=== PATIENT | male | born 1960 | race Caucasian/White ===

== ENCOUNTER 2021-09-07 08:37 | Day surgery (SDC) | payer BC ==
[2021-09-03 14:13] VITALS: BMI 32.6
[~2021-09-07 08:37] MED LIST: LACTATED RINGERS 1,000 ML IV SCH; LIDOCAINE 1% (10MG/ML) FOR IV START INTRADERMA PRN
[2021-09-07 08:58] VITALS: RESP 16; TEMP 97.2
[2021-09-07] MEDS ORDERED: PROPOFOL 10 MG/ML 20 ML VIAL IV ONE (09:40)
--- NOTE | 2021-09-07 09:45 | P.GSHP ---
History of Present Illness H&P Date: 09/07/21 Chief Complaint: Colon cancer screening 60-year-old male here today for colonoscopy. Last colonoscopy 10 years ago was reportedly normal. No bowel complaints. No family history of colon cancer. Past Medical History Past Medical History: Hyperlipidemia History of Any Multi-Drug Resistant Organisms: None Reported Additional Past Surgical History / Comment(s): ORIF lt lower leg Past Anesthesia/Blood Transfusion Reactions: No Reported Reaction Smoking Status: Never smoker - Past Family History Mother Family Medical History: No Reported History Medications and Allergies Home Medications Medication Instructions Recorded Confirmed Type Cholesterol Med 1 tab PO DAILY 09/03/21 09/03/21 History Triglyceride Med 1 tab PO DAILY 09/03/21 09/03/21 History Allergies Allergy/AdvReac Type Severity Reaction Status Date / Time No Known Allergies Allergy Verified 09/03/21 13:49 Surgical - Exam Vital Signs Temp Pulse Resp BP Pulse Ox 97.2 F L 67 16 127/75 97 09/07/21 08:57 09/07/21 08:57 09/07/21 08:57 09/07/21 08:57 09/07/21 08:57 Physical exam: General: Well-developed, well-nourished HEENT: Normocephalic, sclerae nonicteric Abdomen: Nontender, nondistended Extremities: No edema Neuro: Alert and oriented Assessment and Plan (1) Colon cancer screening Narrative/Plan: Will proceed with colonoscopy at this time Current Visit: Yes Status: Acute Code(s): Z12.11 - ENCOUNTER FOR SCREENING FOR MALIGNANT NEOPLASM OF COLON SNOMED Code(s): 356259552
--- NOTE | 2021-09-07 09:59 | P.PCN ---
Date of Procedure: 09/07/21 Procedure(s) Performed: PREOPERATIVE DIAGNOSIS: Colon cancer screening POSTOPERATIVE DIAGNOSIS: Diverticulosis, transverse colon polyp PROCEDURE: Colonoscopy with biopsy ANESTHESIA: MAC SURGEON: Raymon Goel M.D. SPECIMENS: Transverse colon polyp ENDOSCOPIC PROCEDURE: The patient was placed on the endoscopy table in the left decubitus position. The Olympus colonoscope was inserted into the anus and passed under direct visualization to the base of the cecum. The appendiceal orifice was visualized. From that point the scope was slowly withdrawn inspecting all surfaces carefully. There were no neoplastic inflammatory or polypoid lesions throughout the cecum and ascending colon. In the transverse colon a small polyp was seen and removed using the cold biopsy forceps. The remainder of the transverse descending sigmoid and rectum appeared normal. There is mild left-sided diverticulosis. Digital rectal examination was normal. The patient was taken to the recovery room in stable condition per anesthesia guidelines. RECOMMENDATIONS: Await biopsy results. Resume diet. Follow colonoscopy in 5-7 years anticipated.
[2021-09-07 10:15] VITALS: BP 122/78; PULSE 63
== END 2021-09-07 10:35 | disposition home or self-care (01) ==
LOC: ORWHC2ENDO 08:37
PROVIDERS: ATTEND Surgery
DX: Z12.11 Encounter for screening for malignant neoplasm of colon (principal); D12.3 Benign neoplasm of transverse colon; E78.5 Hyperlipidemia, unspecified
CPT/HCPCS: 45380; 88305; J2704

== ENCOUNTER → 2021-09-08 | Outpatient (CLI) | payer BC ==
--- NOTE | 2021-09-08 22:13 | CT ---
EXAMINATION TYPE: CT abdomen pelvis wo con DATE OF EXAM: 09/08/2021 COMPARISON: None available HISTORY: Abnormal xray in office. CT DLP: 710.8 mGycm. Automated Exposure Control for Dose Reduction was Utilized. TECHNIQUE: Multiple contiguous axial CT images of the abdomen, and pelvis were obtained from the lung apices through the pubic symphysis without the administration of intravenous contrast. 2-D sagittal and coronal reformatted images were obtained. FINDINGS: Liver, spleen, pancreas, and bilateral adrenal glands have an unremarkable unenhanced appearance. Gallbladder is present. No definite intrahepatic or extrahepatic biliary ductal dilatation. Kidneys are symmetric in size without hydronephrosis. No renal or ureteral calculi. There is a partia lly calcified exophytic lesion of the left kidney measuring 14 mm. Urinary bladder appears unremarkab le. Large amount of the prostate gland. No free fluid. Visualized bowel is of normal caliber without evidence of obstruction. Nonspecific haziness of the ce ntral mesentery with a few mildly prominent mesenteric lymph nodes. Mild burden of distal colonic div erticulosis without adjacent inflammatory changes. Appendix appears unremarkable. No free air. Abdominal aorta is of normal caliber. No retroperitoneal lymphadenopathy. Subcutaneous soft tissues a ppear unremarkable. Mild multilevel degenerative changes of the visualized thoracolumbar spine. IMPRESSION: 1. Nonspecific haziness of the central mesentery with a few mildly prominent mesenteric lymph nodes w hich may represent panniculitis. 2. Partially calcified exophytic lesion of the left kidney measuring 14 mm, which may represents a pa rtially calcified renal cyst or primary renal neoplasm. Recommend comparison with prior imaging if av ailable; otherwise, recommend follow-up imaging in 3 months to ensure stability.
== END | disposition home or self-care (01) ==
LOC: RADCTMAIN 15:51
PROVIDERS: ATTEND Family Medicine
DX: N28.89 Other specified disorders of kidney and ureter (principal)
CPT/HCPCS: 74176

== ENCOUNTER → 2021-11-30 | Outpatient (CLI) | payer BC ==
--- NOTE | 2021-11-30 09:40 | CT ---
EXAMINATION TYPE: CT abdomen pelvis wo/w con CT DLP: 1828.0 mGycm, Automated exposure control for dose reduction was used. 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 Coronal and sagittal reformats were performed. FINDINGS: LOWER CHEST: Unremarkable ABDOMEN LIVER: Unremarkable GALLBLADDER AND BILE DUCTS: Unremarkable. PANCREAS: Unremarkable. SPLEEN: Unremarkable. ADRENAL GLANDS: Unremarkable. KIDNEYS AND URETERS: No evidence of hydronephrosis or renal calculus. Stable partially calcified exop hytic lesion of the left lower pole measuring 1.7 cm. No definitive contrast enhancement however eval uation is limited due to calcification and size. PELVIS BLADDER: Unremarkable REPRODUCTIVE: Coarse calcifications of the prostate gland are identified. ABDOMEN & PELVIS STOMACH AND BOWEL: Stomach and duodenum are unremarkable. Scattered diverticula are noted throughout the colon. No evidence of bowel obstruction. PERITONEUM: No evidence of pneumoperitoneum or free fluid. VASCULATURE: No evidence of aortic aneurysm. MUSCULOSKELETAL: No acute osseous abnormalities. No suspicious osseous lesions. LYMPH NODES: No gross evidence for lymphadenopathy. SOFT TISSUE/ABDOMINAL WALL: Small fat filled umbilical hernia. IMPRESSION: 1. Stable partially calcified exophytic lesion of the left renal lower pole. Etiologies again may re present a partially calcified renal cyst versus primary renal neoplasm. Consider 6 month follow up to assess for stability. 2. No concerning lymphadenopathy.
== END | disposition home or self-care (01) ==
LOC: RADCTMAIN 07:12
PROVIDERS: ATTEND Family Medicine
DX: D49.519 Neoplasm of unspecified behavior of unspecified kidney (principal)
CPT/HCPCS: 82565; 84520; 74178; 36415; Q9967 ×2

== ENCOUNTER → 2021-12-02 | Outpatient (CLI) | payer BC ==
[2021-12-02 23:33] LABS: African American GFR (CKD) 72.3 (60.0-200.0); Anion Gap 13.4 mmol/L (10.00-18.00); BUN/Creat Ratio 13.87 Ratio (12.00-20.00); Blood Urea Nitrogen 17.2 mg/dL (9.0-27.0); Calcium 9.4 mg/dL (8.7-10.3); Carbon Dioxide 23.5 mmol/L (20.0-27.5); Non-African American GFR(CKD) 62.4 (60.0-200.0); Potassium 4.2 mmol/L (3.5-5.5)
[2021-12-02 23:47] LABS: Basophils # (A) 0.05 X 10*3/uL (0.00-0.10); Basophils % (A) 0.6 %; Eosinophils # (A) 0.23 X 10*3/uL (0.04-0.35); Eosinophils % (A) 2.9 %; HCT 42.6 % (39.6-50.0); HGB 13.6 g/dL (13.0-17.0); Immature Grans, Automated 0.3 %; Lymphocytes # (A) 2.69 X 10*3/uL (0.90-5.00); Lymphocytes % (A) 33.8 %; MCH 29.4 pg (27.0-32.0); MCHC 31.9 g/dL (32.0-37.0); MCV 92.2 fL (80.0-97.0); Mean Platelet Volume 9.6 fL (9.5-12.2); Monocytes # (A) 0.47 X 10*3/uL (0.20-1.00); Monocytes % (A) 5.9 %; NRBC Per 100 WBC 0 /100 WBCS (0.0-0.0); Neutrophils % (A) 56.5 %; Platelet Count 320 X 10*3/uL (140-440); RBC 4.62 X 10*6/uL (4.40-5.60); RDW 12.5 % (11.5-14.5); WBC 7.96 X 10*3/uL (4.50-10.00)
[2021-12-03 09:24] LABS: INR 0.9 (<1.2); Partial Thromboplastin Time 22.3 sec (22.0-30.0)
== END | disposition home or self-care (01) ==
LOC: LABPAT 16:26
PROVIDERS: ATTEND Orthopaedic Surgery
DX: Z01.812 Encounter for preprocedural laboratory examination (principal); M16.11 Unilateral primary osteoarthritis, right hip
CPT/HCPCS: 80048; 85025; 85610; 85730; 87070; 93005

== ENCOUNTER → 2021-12-06 | Day surgery (SDC) | payer BC ==
--- NOTE | 2021-12-05 11:55 | HP ---
HISTORY AND PHYSICAL REASON FOR ADMISSION: Surgery scheduled for HISTORY OF PRESENT ILLNESS: Julio Beasley is a 61-year-old gentleman seen with progressive right hip pain. We discussed options for treatment. He elected to proceed with direct anterior right total hip arthroplasty. Consent regarding procedure was obtained. PAST MEDICAL HISTORY: Osteoarthritis. PAST SURGICAL HISTORY: ORIF left tibial plateau fracture. MEDICATIONS: Pravastatin. ALLERGIES: None. SOCIAL HISTORY: Denies tobacco use. PHYSICAL EXAMINATION: Evaluation of the right hip: He has very limited range of motion, severe pain. Positive hip impingement sign. Straight-leg raise is negative. Diffuse tenderness about the hip girdle. Distal neurovascular exam is intact. RADIOGRAPHS: Radiographs of the right hip reveal severe osteoarthritic changes. IMPRESSION: 1. Right hip osteoarthritis. 2. Hyperlipidemia. PLAN: Direct anterior right total hip arthroplasty. Surgery 12/06/2021. MMODL / IJN: [id number] /
[~2021-12-06] MED LIST changes: +ACETAMINOPHEN TAB 500 MG TAB PO PRN; +DEXAMETHASONE SOD PHOSPHATE 4 MG/ML 1 ML VIAL IV ONE; +GLYCOPYRROLATE 0.2 MG/ML 2 ML VIAL ONE; +HYDROcodone/APAP 5-325MG 1 EACH TAB PO PRN; +HYDROcodone/APAP 7.5-325MG 1 EACH TAB PO ONE; +HYDROcodone/APAP 7.5-325MG 1 EACH TAB PO PRN; +HYDROmorphone (PF) 1 MG/ML ONE; +HYDROmorphone 0.5 MG/0.5 ML SYRINGE IVP ONE; +HYDROmorphone 0.5 MG/0.5 ML SYRINGE IVP PRN; +HYDROmorphone 1 MG/ML 1 ML SYRINGE IVP PRN; +KETOROLAC 15 MG/ML 1 ML VIAL IVP ONE; +KETOROLAC 15 MG/ML 1 ML VIAL ONE; +LACTATED RINGERS 1,000 ML IV ONE; -LIDOCAINE 1% (10MG/ML) FOR IV START INTRADERMA PRN; +LIDOCAINE 2% INJ 20 MG/ML (2 ML VIAL) ONE; +MELOXICAM 7.5 MG TAB PO PRN; +MIDAZOLAM 2 MG/2 ML VIAL IVP ONE; +MIDAZOLAM 2 MG/2 ML VIAL ONE; +NALOXONE 0.4 MG/ML 1 ML VIAL IV PRN; +NEOSTIGMINE 1 MG/ML 10 ML VIAL ONE; +ONDANSETRON 4 MG/2 ML VIAL IVP ONE; +ONDANSETRON 4 MG/2 ML VIAL IVP PRN; +PROPOFOL 10 MG/ML 20 ML VIAL IV ONE; +ROCURONIUM 10 MG/ML (5 ML VIAL) IV ONE; +ROPIVACAINE 5 MG/ML 30 ML VIAL ONE; +SUCCINYLCHOLINE CHLORIDE 100 MG/5 ML SYR IV ONE; +TRANEXAMIC ACID IN NACL,ISO-OS 1,000 MG in SALINE 1 100ML.BAG IVPB PRN; +TRANEXAMIC ACID IN NACL,ISO-OS 1,000 MG/100 ML BAG ONE; +ceFAZolin 1,000 MG in SODIUM CHLORIDE 0.9% 1,000 ML IRRIGATION ONE; +fentaNYL (PF) 50 MCG/ML 2 ML AMP ONE
--- NOTE | 2021-12-06 08:52 | P.ANPRN ---
Procedure Note - Anesthesia - Nerve Block Performed Right Erector Spinae Single Time Out Performed: Yes (1010) Date of Procedure: 12/06/21 Procedure Start Time: :10 Procedure Stop Time: :08 Location of Patient: PreOp Indication: Acute Post-Operative Pain, Dx/Pain Location (Right hip pain) Specifically requested for management of pain by DrNeena: Ryan Tran Sedation Type: Sedate with meaningful contact maintained Preparation: Sterile Prep Position: Prone Catheter: None Needle Types: Pajunk Needle Gauge: 21 (100 mm) Ultrasound used to visualize needle placement: Yes Ultrasound used to observe medication spread: Yes Injectate: 0.5% Ropivacaine (see comment for volume) (30 cc) Blood Aspirated: No Pain Paresthesia on Injection Noted: No Resistance on Injection: Normal
--- NOTE | 2021-12-06 09:10 | FL ---
Fluoroscopy HISTORY: Right hip replacement 11 seconds fluoroscopy time supplied to the referring clinician. 3 intraoperative C-arm images docum ent the procedure. See dictated report from orthopedic surgery..
--- NOTE | 2021-12-06 09:16 | P.OP ---
Date of Procedure: 12/06/21 Preoperative Diagnosis: Right hip osteoarthritis Postoperative Diagnosis: Right hip osteoarthritis Procedure(s) Performed: Direct anterior right total hip arthroplasty Implants: 1. Depuy Corail 135 standard collar KA size 12 press-fit femoral stem 2. Depuy pinnacle 58 mm press-fit acetabular shell 3. Depuy pinnacle neutral polyethylene acetabular liner 38 mm ID 58 mm OD 4. Biolox delta ceramic femoral head +1.5 36 mm Anesthesia: GETA, regional (Spina erectae block) Surgeon: Ryan Tran Asset Protection Detective #1: Chucho Morrow Estimated Blood Loss (ml): 95 Pathology: other (Femoral head) Condition: stable Disposition: PACU Indications for Procedure: 61-year-old gentleman seen with symptomatic right hip osteoarthritis. After treatment options were discussed, he elected to proceed with direct anterior right total hip arthroplasty. Operative Findings: See description of procedure Description of Procedure: The patient was taken to the operative suite after having a spinal erectae block performed by the department of anesthesia for postoperative pain management. Patient underwent a general anesthetic by the department of anesthesia. Patient was then transferred to the [place] table. Patient was given preoperative IV antibiotics and TXA. Both lower extremities were placed in standard leg spars. The hip was then prepped and draped in the normal sterile orthopedic fashion. A standard anterior incision was made beginning 3 cm lateral and 1 cm distal to the ASIS extending 10 cm. Dissection was then carried down through the subcutaneous soft tissues down to the fascia overlying the tensor fascia daron. An incision was now made through the fascia. Careful dissection was taken down exposing the tensor fascia daron muscle. A Cobra retractor was now placed along the medial femoral neck and a second one along the lateral femoral neck. The venous circumflex vessels were now identified, cauterized and clipped. We identified the anterior hip capsule. An incision was made through the hip capsule along the lateral border. I performed a partial anterior capsulectomy. Retractors were now placed around the femoral neck itself. A femoral neck cut was now made with a sagittal saw. It was completed with an osteotome at the lateral neck area. The femoral head was now removed without difficulty. The extremity was now rotated to 60 of external rotation. It was locked in position. Residual labrum was now debrided out. Serial reaming was performed of the acetabulum while Jonathan WIN assisted holding an anterior retractor for exposure. Once we reached the appropriate size and a trial was position and fit nicely. The appropriate size was now chosen opened and made available. It was introduced into the acetabulum without difficulty. The C-arm/fluoroscopy was now brought into the operative field. We made sure we had a true AP pelvic view. We now under direct C-arm/fluoroscopy introduced into the acetabular component with appropriate version and inclination. I held the cup in appropriate position well Jonathan WIN used a mallet to seat the acetabular component. I noted the component now to be well seated and stable. Acetabular cup introduce her was removed. The C-arm was pulled back. An appropriate liner was introduced and clicked into position. It was felt to be stable. At this point retractors were removed. The extremity was now placed into 120 external rotation with no traction. The leg was now dropped to the ground and adducted. Appropriate retractors were now positioned along the proximal femur. We also placed our femoral look into position. Additional capsular releasing was performed to gain access to the proximal femur. We now used a box osteotome. A canal finder was now utilized. Serial broaching was now performed with the assistance of Jonathan WIN tapping the broaches down with a mallet while held the broach in appropriate rotation and position. This was done until we reached the appropriate size with good overall rotational stability. Appropriate calcar planing was performed. A trial head/neck was placed into position. The hip was now reduced. The C-arm/fluoroscopy was brought back into the operative field. I obtained an AP pelvis demonstrating adequate leg length alignment. The trial components appeared appropriately positioned and sized. The C-arm/fluoroscopy was pulled back. Retractors were repositioned and the hip was dislocated. The leg was again taken down to the ground and adducted. Appropriate retractors were repositioned as well as the femoral hook. All trial components were removed. The femoral implant was opened along with the femoral head. The femoral implant was introduced on the appropriate handle into our pre-broached area. I held the component position well Jonathan WIN used a mallet to seat the femoral component. The femoral component was now noted to be well seated and stable.. The femoral head was introduced with good positioning and fixation noted. Retractors were now removed. The hip was now reduced. There appeared be good positioning of the hip confirmed on intraoperative fluoroscopy. Spot films were obtained to document this. A second gram of TXA was given. The deep and superficial soft tissues were infiltrated with local analgesic. Bipolar cautery had been utilized intermittently through the procedure for hemostasis. The wound was irrigated copiously with pulse lavage mechanical irrigation. The fascia was repaired with Vicryl suture. The subcutaneous soft tissues were repaired in layers with Vicryl suture. The skin was approximated with pernio/Dermabond. Sterile dressings were applied. Patient was then awakened, transferred to a bed and taken to recovery in stable condition. Jonathan WIN assisted with the complex procedure.
[2021-12-06 09:47] VITALS: RESP 16; TEMP 98
[2021-12-06] MEDS: MEPERIDINE 50 MG/ML SYRINGE IVP ONE ×2 (09:51→10:18)
[2021-12-06 13:52] VITALS: BP 138/74; PULSE 78
== END | disposition home health service (06) ==
LOC: OR 05:52
PROVIDERS: ATTEND Orthopaedic Surgery
DX: M16.11 Unilateral primary osteoarthritis, right hip (principal); G89.18 Other acute postprocedural pain; E78.5 Hyperlipidemia, unspecified; E78.00 Pure hypercholesterolemia, unspecified; Z79.899 Other long term (current) drug therapy; Z79.82 Long term (current) use of aspirin
CPT/HCPCS: 97110; 97161; 64999; 86900; 86901; 86850; 88300; 73502; 27130; C1776; J2250; J1100; J2710; J2175; J0690 ×2; J2405; J3010; J1170 ×2; J2795; J1885; J0330; J2704; J2001

== ENCOUNTER → 2022-06-06 | Outpatient (CLI) | payer BC ==
--- NOTE | 2022-06-06 11:01 | CT ---
EXAMINATION TYPE: CT abdomen pelvis wo/w con CT DLP: 2712 mGycm, Automated exposure control for dose reduction was used. DATE OF EXAM: 06/06/2022 10:44 AM COMPARISON: CT abdomen pelvis most recent from 11/30/2021, 09/08/2021. CLINICAL INDICATION:Male, 61 years old with history of D49.519 neoplasm kidney; neoplasm kidney TECHNIQUE: Standard CT of the abdomen and pelvis before and after the uneventful administration of 70 cc of Isovue-300 intravenously. Oral contrast was given. Coronal and sagittal reformats were perfo rmed. FINDINGS: LOWER CHEST: Unremarkable ABDOMEN LIVER: Unremarkable GALLBLADDER AND BILE DUCTS: Unremarkable. PANCREAS: Unremarkable. SPLEEN: Unremarkable. ADRENAL GLANDS: Unremarkable. KIDNEYS AND URETERS: No evidence of hydronephrosis. Stable partially calcified exophytic lesion of th e left lower pole measuring up to 1.7 cm. No definitive contrast enhancement identified however evalu ation is limited due to calcification in size. PELVIS BLADDER: Unremarkable REPRODUCTIVE: Coarse calcifications of the prostate gland are identified. ABDOMEN & PELVIS STOMACH AND BOWEL: Stomach and duodenum are unremarkable. Enteric contrast reaches the transverse col on. The appendix is within normal limits. Distal colonic diverticulosis without evidence for acute di verticulitis. No evidence of bowel obstruction. PERITONEUM/RETROPERITONEUM: No evidence of pneumoperitoneum or free fluid. VASCULATURE: No evidence of aortic aneurysm. MUSCULOSKELETAL: No acute osseous abnormalities. Postsurgical changes from right total hip arthroplas ty. No aggressive osseous lesions. LYMPH NODES: No gross evidence for lymphadenopathy. SOFT TISSUE/ABDOMINAL WALL: Small fat filled umbilical hernia. Asymmetric subtle hyperdense enlargeme nt of the right iliacus muscle with adjacent stranding/fluid along the right iliopsoas muscle. No act lisandra extravasation. IMPRESSION: 1. Stable partially calcified exophytic lesion in the left renal lower pole. Etiology again may repr esent a partially calcified renal cyst versus primary renal neoplasm. Continued follow-up is recommen ded with CT examination in one year. 2. Postsurgical changes from right total hip arthroplasty with intramuscular hematoma involving the r ight iliacus muscle and trace retroperitoneal fluid/stranding. No evidence for contrast extravasation .
== END | disposition home or self-care (01) ==
LOC: RADCTMAIN 08:39
PROVIDERS: ATTEND Family Medicine
DX: D49.519 Neoplasm of unspecified behavior of unspecified kidney (principal); M79.81 Nontraumatic hematoma of soft tissue; N28.9 Disorder of kidney and ureter, unspecified; Z96.641 Presence of right artificial hip joint
CPT/HCPCS: 82565; 84520; 74178; 36415; Q9967